=== PATIENT | female | born 1960 | race Caucasian/White ===

== ENCOUNTER 2017-06-10 16:24 | Emergency (ER) | payer OTHER ==
[2017-06-10 16:34] VITALS: BP 133/83; PULSE 91; TEMP 98.9; BMI 23.1
[2017-06-10] MEDS ORDERED: IBUPROFEN 600 MG TABLET (FP) PO ONE ×2 (17:40→17:49)
[2017-06-10 17:50] LABS: URINE APPEARANCE CLEAR; URINE BILIRUBIN NEGATIVE (NEGATIVE); URINE BLOOD NEGATIVE (NEGATIVE); URINE COLOR LTYELLOW; URINE GLUCOSE (UA) NEGATIVE (NEGATIVE); URINE KETONE NEGATIVE (NEGATIVE); URINE NITRITE NEGATIVE (NEGATIVE); URINE PROTEIN NEGATIVE (NEGATIVE); URINE UROBILINOGEN NEGATIVE mg/dL (0.2-1.0)
--- NOTE | 2017-06-10 17:50 | PDOC ---
History of Present Illness - General Chief Complaint: Sore Throat Stated Complaint: FEVER, PAIN Time Seen by Provider: 06/10/17 17:29 History Source: Patient Exam Limitations: No Limitations - History of Present Illness Initial Comments: 06/10/17 17:45 56 yr female with history of HTN, c/o sore throat and body aches and ear pain. Sore throat for 2 months. no fever no chills neg nvd or abd pain. Pt states 3 months ago she was on Zpack for throat pain. pT DENIES CHEST PAIN OR ABD PAIN. 06/10/17 18:55 Severity: mild Past History - Past Medical History Allergies/Adverse Reactions: Allergies Allergy/AdvReac Type Severity Reaction Status Date / Time aspirin Allergy Verified 06/10/17 16:34 Home Medications: Ambulatory Orders Acetazolamide [Diamox Sequels -] 500 mg PO BID 05/19/13 Diazepam [Valium] 5 mg PO HS 05/19/13 Hydrochlorothiazide [Hctz] 12.5 mg PO DAILY 05/19/13 Meclizine HCl [Antivert -] 25 mg PO TID PRN #15 tablet 05/19/13 Terbinafine HCl [Lamisil] 250 mg PO DAILY 05/19/13 Methocarbamol [Robaxin -] 500 mg PO BID #14 tablet 01/24/16 Omeprazole 20 mg PO DAILY #30 tablet. 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" - Surgical History Appendectomy: Yes - Psycho/Social/Smoking Cessation Hx Anxiety: No Suicidal Ideation: No Smoking Status: No Smoking History: Never smoked Number of Cigarettes Smoked Daily: 0 Hx Alcohol Use: No Drug/Substance Use Hx: No Substance Use Type: None *Physical Exam - Vital Signs Last Vital Signs Temp Pulse Resp BP Pulse Ox 98.9 F 91 H 20 133/83 96 06/10/17 16:32 06/10/17 16:32 06/10/17 16:32 06/10/17 16:32 06/10/17 16:32 - Physical Exam General Appearance: Yes: Nourished, Appropriately Dressed HEENT: positive: EOMI, LEIDY, Pharynx Normal, Other (bilateral cerumen impaction ) Respiratory/Chest: positive: Lungs Clear, Normal Breath Sounds Cardiovascular: positive: Regular Rhythm, Regular Rate Gastrointestinal/Abdominal: positive: Normal Bowel Sounds, Soft Musculoskeletal: positive: Normal Inspection Extremity: positive: Normal Capillary Refill, Normal Inspection, Normal Range of Motion Integumentary: positive: Normal Color, Dry, Warm Neurologic: positive: Fully Oriented, Alert, Normal Mood/Affect, Normal Response , Motor Strength 5/5 Medical Decision Making - Medical Decision Making 06/10/17 17:48 cc: sore throat for 2 months sometimes worse after eating headache body aches , denies abd pain or nvd will check rapid strep r/o UTI (pt c/o decreased urinary frequency) motrin for osuna , pt states she is NOT ALLERGIC to ibuprofen stable vitals non toxic well appearing in no acute distress 06/10/17 18:11 06/10/17 18:11 will try PPI as pt has had sore throat for 2-3 months worse after eating no evidence of infection at this time or post nasal drip will refer to ENT for follow up this week 06/10/17 18:13 06/10/17 18:55 urine is negative, strep is negative. will dc home with follow up with ENT as I have discussed with pt and her friend. *DC/Admit/Observation/Transfer Diagnosis at time of Disposition: Sore throat - Discharge Dispostion Disposition: HOME Condition at time of disposition: Good - Prescriptions Prescriptions: Omeprazole 20 mg PO DAILY #30 tablet.dr - Referrals Referrals: Lazaro Velasquez MD [Primary Care Provider] - Santy Betancur MD [Staff Physician] - - Patient Instructions Additional Instructions: follow with ENT for follow up this week call Monday drink pleanty of fluids to stay hydrated get pleanty of rest increase vitamin C and Zinc intake to boost immune system avoid any spicy foods, avoid alcohol, chocolate and red meat that can worsen sore throat take omeprazole once a day as directed continue to take tylenol 650mg every 4-6hrs for headache or body aches
[2017-06-10 18:02] LABS: URINE LEUK ESTERASE 1+ (NEGATIVE)
[2017-06-10 18:03] LABS: URINE MUCUS RARE; URINE RBC 1 /hpf (0-3); URINE WBC 26 /hpf (3-5)
== END 2017-06-10 18:33 | disposition home or self-care (01) ==
LOC: JERFT 16:24
DX: J02.9 Acute pharyngitis, unspecified (principal); H61.23 Impacted cerumen, bilateral; I10 Essential (primary) hypertension; Z87.442 Personal history of urinary calculi
CPT/HCPCS: 81003; 81015; 87070; 87430; 99281-25

== ENCOUNTER 2018-09-05 02:46 | Emergency (ER) | payer SELFPAY ==
[2018-09-05] MEDS ORDERED: SODIUM CHLORIDE 1,000 ML IV STA (03:52)
[2018-09-05] MEDS ORDERED: morphine CARPU-JECT 2 MG/1 ML DISP.SYRIN IVPUSH ONE (03:53)
--- NOTE | 2018-09-05 03:55 | PDOC ---
History of Present Illness - General Stated Complaint: ABDOMINAL PAIN Time Seen by Provider: 09/05/18 03:52 - History of Present Illness Initial Comments: 09/05/18 03:55 Ms. Lopez is a 58 yo female w/ pmh of HTN, HLD, and prior nephrolithiasis who presents for evaluation of lower left sided abdominal pain radiating to her back that woke her up from sleep earlier tonight. She reports it has waxed and waned in intensity and that it feels similar to her previous kidney stone. The patient denies chest pain, shortness of breath, headache and dizziness. Denies fever, chills, nausea, vomit, diarrhea and constipation. Denies dysuria, frequency, urgency and hematuria. Past History - Past Medical History Allergies/Adverse Reactions: Allergies Allergy/AdvReac Type Severity Reaction Status Date / Time aspirin Allergy Verified 09/05/18 03:58 Home Medications: Ambulatory Orders Diazepam [Valium] 5 mg PO HS 05/19/13 Hydrochlorothiazide [Hctz] 12.5 mg PO DAILY 05/19/13 Meclizine HCl [Antivert -] 25 mg PO TID PRN #15 tablet 05/19/13 Terbinafine HCl [Lamisil] 250 mg PO DAILY 05/19/13 acetaZOLAMIDE [Diamox Sequels -] 500 mg PO BID 05/19/13 Methocarbamol [Robaxin -] 500 mg PO BID #14 tablet 01/24/16 Omeprazole 20 mg PO DAILY #30 tablet. 06/10/17 HTN: Yes Kidney Stones: Yes - Surgical History Appendectomy: Yes - Suicide/Smoking/Psychosocial Hx Smoking Status: No Smoking History: Never smoked Number of Cigarettes Smoked Daily: 0 Hx Alcohol Use: No Drug/Substance Use Hx: No Substance Use Type: None Review of Systems - Review of Systems Comments:: 09/05/18 03:57 GENERAL/CONSTITUTIONAL: No fever or chills. No weakness. HEAD, EYES, EARS, NOSE AND THROAT: No change in vision. No ear pain or discharge. No sore throat. CARDIOVASCULAR: No chest pain or shortness of breath RESPIRATORY: No cough, wheezing, or hemoptysis. GASTROINTESTINAL: +Left sided abdominal pain; colicky in nature. No nausea, vomiting, diarrhea or constipation. GENITOURINARY: No dysuria, frequency, or change in urination. MUSCULOSKELETAL: No joint or muscle swelling or pain. No neck or back pain. SKIN: No rash NEUROLOGIC: No headache, vertigo, loss of consciousness, or change in strength/ sensation. ENDOCRINE: No increased thirst. No abnormal weight change HEMATOLOGIC/LYMPHATIC: No anemia, easy bleeding, or history of blood clots. ALLERGIC/IMMUNOLOGIC: No hives or skin allergy. *Physical Exam - Physical Exam Comments: 09/05/18 04:00 GENERAL: Awake, alert, and fully oriented, in no acute distress HEAD: No signs of trauma, normocephalic, atraumatic EYES: PERRLA, EOMI, sclera anicteric, conjunctiva clear ENT: Auricles normal inspection, hearing grossly normal, nares patent, oropharynx clear without exudates. Moist mucosa NECK: Normal ROM, supple, no lymphadenopathy, JVD, or masses LUNGS: No distress, speaks full sentences, clear to auscultation bilaterally HEART: Regular rate and rhythm, normal S1 and S2, no murmurs, rubs or gallops, peripheral pulses normal and equal bilaterally. ABDOMEN: +LLQ TTP. Soft, normoactive bowel sounds. No guarding, no rebound. No masses EXTREMITIES: Normal inspection, Normal range of motion, no edema. No clubbing or cyanosis. NEUROLOGICAL: Cranial nerves II through XII grossly intact. Normal speech, normal gait, no focal sensorimotor deficits SKIN: Warm, Dry, normal turgor, no rashes or lesions noted. ED Treatment Course - LABORATORY CBC & Chemistry Diagram: 09/05/18 05:12 09/05/18 05:12 Medical Decision Making - Medical Decision Making 09/05/18 04:00 Ms. Lopez is a 58 yo female w/ pmh as described who presents for evaluation of symptoms c/w nephrolithiasis. Will confirm with CT spiral and provide symptomatic relief with fluids / morphine / tylenol. Workup for infectious causes also started with labs. 09/05/18 06:48 Patient currently pending official radiology CT read. Stone thought to be visible on CT image. 09/05/18 07:12 Patient signed out to Dr. Shah for further evaluation. *DC/Admit/Observation/Transfer Diagnosis at time of Disposition: Nephrolithiasis - Discharge Dispostion Condition at time of disposition: Fair - Referrals Referrals: Lazaro Velasquez MD [Primary Care Provider] - - Patient Instructions - Post Discharge Activity
[2018-09-05] MEDS ORDERED: ACETAMINOPHEN 1000 MG/100 ML VIAL (NON FORMULARY) IVPB ONE (03:56)
[2018-09-05 03:58] VITALS: BMI 24.7
[2018-09-05] MEDS ORDERED: morphine CARPU-JECT 4 MG/1 ML DISP.SYRIN IVPUSH ONE (03:58)
--- NOTE | 2018-09-05 04:29 | PDOC ---
Attending Attestation - [facility] HPI: 09/05/18 04:43 The patient is a 58 year old female with a significant PMH of hypertension, and kidney stones who presents to the emergency department with left lower quadrant pain since earlier this morning. The patient reports that she was home sleeping when she felt an onset of lower left quadrant pain. The patient reports some associated nausea with her pain. She states that this pain feels similar to when she had her kidney stones. She states that it has been about 10 years. The patient denies any urinary symptoms. She denies any other symptoms. She denies any fever, chills, vomiting diarrhea constipation. She denies any chest pain, shortness of breath, headache or dizziness. The patient denies any other complaints. PCP: Dr. Velasquez - Physicial Exam PE: 09/05/18 04:43 GENERAL: Awake, alert, and fully oriented, in no acute distress HEAD: No signs of trauma EYES: PERRLA, EOMI, sclera anicteric, conjunctiva clear ENT: Auricles normal inspection, hearing grossly normal, nares patent,. Moist mucosa NECK: Normal ROM, supple, no JVD, or masses ABDOMEN: (+)left lower quadrant tenderness on palpation. Left CVA tenderness. Soft. No guarding, no rebound. No masses EXTREMITIES: Normal range of motion, no edema. No clubbing or cyanosis. No cords, erythema, or tenderness NEUROLOGICAL: Cranial nerves II through XII grossly intact. Normal speech. SKIN: Warm, Dry, normal turgor, no rashes or lesions noted. Documentation prepared by Anh Avalos, acting as certified medical coder for Sudhakar Vogel MD <Anh Avalos - Last Filed: 09/05/18 04:43> - Resident Resident Name: Can Woodson - ED Attending Attestation I have performed the following: I have examined & evaluated the patient, The case was reviewed & discussed with the resident, I agree w/resident's findings & plan, Exceptions are as noted - Medical Decision Making 09/05/18 04:25 A portion of this note was documented by scribe services under my direction. I have reviewed the details of the note, within reason, and agree with the documentation with the following case summary and management plan written by me. Patient treated in the ED. Nursing notes are reviewed and incorporated into the medical decision-making. Vital signs reviewed. Peripheral IV access obtained by the nurse, laboratory studies are drawn and sent, reviewed and interpreted by myself. Vital Signs Temp Pulse Resp BP Pulse Ox 97.9 F 73 18 154/91 97 09/05/18 02:50 09/05/18 02:50 09/05/18 02:50 09/05/18 02:50 09/05/18 02:50 58-year-old female history of hypertension, hyperlipidemia, renal colic presents with left flank pain since morning. The patient was well yesterday. Woke up with severe pain with her left lower quadrant left flank pain like her Percocet. Reports some nausea but denies vomiting. No fevers or chills. No dysuria or hematuria. I suspect patient likely has renal colic. We'll obtain labs, urinalysis and CAT scan and reassess. 09/05/18 06:39 CBC, BMP 09/05/18 05:12 09/05/18 05:12 CMP Sodium 136 mmol/L (136-145) 09/05/18 05:12 Potassium 4.1 mmol/L (3.5-5.1) 09/05/18 05:12 Chloride 98 mmol/L (98-107) 09/05/18 05:12 Carbon Dioxide 30 mmol/L (21-32) 09/05/18 05:12 Anion Gap 8 MMOL/L (8-16) 09/05/18 05:12 BUN 23 mg/dL (7-18) H 09/05/18 05:12 Creatinine 0.7 mg/dL (0.55-1.3) 09/05/18 05:12 Creat Clearance w eGFR > 60 (>60) 09/05/18 05:12 Random Glucose 116 mg/dL (74-106) H 09/05/18 05:12 Calcium 8.8 mg/dL (8.5-10.1) 09/05/18 05:12 Total Bilirubin 0.2 mg/dL (0.2-1) 09/05/18 05:12 AST 27 U/L (15-37) 09/05/18 05:12 ALT 33 U/L (13-61) 09/05/18 05:12 Alkaline Phosphatase 72 U/L (45-117) 09/05/18 05:12 Total Protein 7.2 g/dl (6.4-8.2) 09/05/18 05:12 Albumin 3.6 g/dl (3.4-5.0) 09/05/18 05:12 Urine Test Results Urine Color Colorless 09/05/18 05:12 Urine Appearance Clear 09/05/18 05:12 Urine pH 7.0 (5.0-8.0) 09/05/18 05:12 Ur Specific [place] 1.011 (1.010-1.035) 09/05/18 05:12 Urine Protein Negative (NEGATIVE) 09/05/18 05:12 Urine Glucose (UA) Negative (NEGATIVE) 09/05/18 05:12 Urine Ketones Negative (NEGATIVE) 09/05/18 05:12 Urine Blood 1+ (NEGATIVE) H 09/05/18 05:12 Urine Nitrite Negative (NEGATIVE) 09/05/18 05:12 Urine Bilirubin Negative (<2.0 mg/dL) 09/05/18 05:12 Ur Leukocyte Esterase Negative (NEGATIVE) 09/05/18 05:12 Ur Epithelial Cells Rare /HPF (FEW) 09/05/18 05:12 Urine Bacteria Rare /hpf (NONE SEEN) 09/05/18 05:12 Urine Mucus Rare 09/05/18 05:12 CT pending. 09/05/18 06:53 Pt signed out to oncoming ED attending Dr. Horowitz for further management and disposition. <Sudhakar Vogel - Last Filed: 09/05/18 06:53>
[2018-09-05] MEDS ORDERED: ACETAMINOPHEN INJECTION 100 ML IVPB ONE (05:08)
[2018-09-05] MEDS ORDERED: morphine SULFATE 4 MG/ML VIAL ONE (05:08)
[2018-09-05 05:26] LABS: BASO % 0.1 % (0-2.0); EOS % 0.3 % (0-4.5); HEMATOCRIT 43.2 % (32.4-45.2); HEMOGLOBIN 14.3 GM/dL (10.7-15.3); LYMPH % 9.2 % (8-40); MCH 30.8 pg (25.7-33.7); MEAN CELL VOLUME 93.2 fl (80-96); MEAN PLT VOLUME 7.9 fl (7.5-11.1); MONO % 6.6 % (3.8-10.2); NEUT % 83.8 % (42.8-82.8); PLATELET COUNT 253 K/MM3 (134-434); RBC 4.63 M/mm3 (3.60-5.2); RDW 12.3 % (11.6-15.6); WHITE BLOOD COUNT 13.2 K/mm3 (4.0-10.0)
[2018-09-05 05:27] LABS: URINE APPEARANCE CLEAR; URINE BILIRUBIN NEGATIVE (<2.0 mg/dL); URINE COLOR COLORLESS; URINE GLUCOSE (UA) NEGATIVE (NEGATIVE); URINE KETONE NEGATIVE (NEGATIVE); URINE LEUK ESTERASE NEGATIVE (NEGATIVE); URINE NITRITE NEGATIVE (NEGATIVE); URINE PROTEIN NEGATIVE (NEGATIVE); URINE UROBILINOGEN NEGATIVE mg/dL (0.2-1.0)
[2018-09-05 05:37] LABS: EPI CELLS RARE /HPF (FEW); URINE BACTERIA RARE /hpf (NONE SEEN); URINE MUCUS RARE
[2018-09-05 05:47] LABS: ALBUMIN 3.6 g/dl (3.4-5.0); ALK PHOS 72 U/L (45-117); ANION GAP 8 MMOL/L (8-16); BILIRUBIN,TOTAL 0.2 mg/dL (0.2-1); BLOOD UREA NITROGEN 23 mg/dL (7-18); CALCIUM 8.8 mg/dL (8.5-10.1); CHLORIDE 98 mmol/L (98-107); CO2 30 mmol/L (21-32); CREATININE 0.7 mg/dL (0.55-1.3); GLUCOSE,RANDOM 116 mg/dL (74-106); POTASSIUM 4.1 mmol/L (3.5-5.1); SGOT/AST 27 U/L (15-37); SGPT/ALT 33 U/L (13-61); SODIUM 136 mmol/L (136-145); TOT PROT 7.2 g/dl (6.4-8.2)
--- NOTE | 2018-09-05 07:19 | PDOC ---
*Physical Exam - Vital Signs Last Vital Signs Temp Pulse Resp BP Pulse Ox 97.9 F 86 18 130/67 97 09/05/18 02:50 09/05/18 06:32 09/05/18 06:32 09/05/18 06:32 09/05/18 06:32 ED Treatment Course - LABORATORY CBC & Chemistry Diagram: 09/05/18 05:12 09/05/18 05:12 - ADDITIONAL ORDERS Additional order review: Laboratory Results 09/05/18 09/05/18 05:12 05:12 Sodium 136 Potassium 4.1 Chloride 98 Carbon Dioxide 30 Anion Gap 8 BUN 23 H Creatinine 0.7 Creat Clearance w eGFR > 60 Random Glucose 116 H Calcium 8.8 Total Bilirubin 0.2 AST 27 ALT 33 Alkaline Phosphatase 72 Total Protein 7.2 Albumin 3.6 Urine Color Colorless Urine Appearance Clear Urine pH 7.0 Ur Specific [place] 1.011 Urine Protein Negative Urine Glucose (UA) Negative Urine Ketones Negative Urine Blood 1+ H Urine Nitrite Negative Urine Bilirubin Negative Urine Urobilinogen Negative Ur Leukocyte Esterase Negative Urine WBC (Auto) 2 Urine RBC (Auto) 3 Ur Epithelial Cells Rare Urine Bacteria Rare Urine Mucus Rare 09/05/18 05:12 RBC 4.63 MCV 93.2 MCHC 33.0 RDW 12.3 MPV 7.9 Neutrophils % 83.8 H Lymphocytes % 9.2 D Monocytes % 6.6 Eosinophils % 0.3 Basophils % 0.1 - Medications Given in the ED: ED Medications Discontinued Medications Generic Name Dose Route Start Last Admin Trade Name Fabricio PRN Reason Stop Dose Admin Acetaminophen 1,000 mg 09/05/18 03:56 09/05/18 05:25 Ofirmev Injection - IVPB 09/05/18 03:57 1,000 mg ONCE ONE Administration Sodium Chloride 1,000 mls @ 1,000 mls/hr 09/05/18 03:52 09/05/18 05:25 Normal Saline - IV 09/05/18 04:51 1,000 mls/hr ASDIR STA Administration Morphine Sulfate 2 mg 09/05/18 03:53 09/05/18 06:47 Morphine Injection - IVPUSH 09/05/18 03:54 Not Given ONCE ONE Morphine Sulfate 4 mg 09/05/18 03:58 09/05/18 05:25 Morphine Injection - IVPUSH 09/05/18 03:59 4 mg ONCE ONE Administration Medical Decision Making - Medical Decision Making 09/05/18 07:18 58 year old female with PMH multiple kidney stones, lithotripsy presented to ED for left sided flank pain. Initial Vital Signs Temp Pulse Resp BP Pulse Ox 97.9 F 73 18 154/91 97 09/05/18 02:50 09/05/18 02:50 09/05/18 02:50 09/05/18 02:50 09/05/18 02:50 Afebrile. No tachycardia. No tachypnea. Mild hypertension. No hypoxia on room air. CBC WBC 13.2 K/mm3 (4.0-10.0) H 09/05/18 05:12 RBC 4.63 M/mm3 (3.60-5.2) 09/05/18 05:12 Hgb 14.3 GM/dL (10.7-15.3) 09/05/18 05:12 Hct 43.2 % (32.4-45.2) 09/05/18 05:12 MCV 93.2 fl (80-96) 09/05/18 05:12 MCH 30.8 pg (25.7-33.7) 09/05/18 05:12 MCHC 33.0 g/dl (32.0-36.0) 09/05/18 05:12 RDW 12.3 % (11.6-15.6) 09/05/18 05:12 Plt Count 253 K/MM3 (134-434) 09/05/18 05:12 MPV 7.9 fl (7.5-11.1) 09/05/18 05:12 Absolute Neuts (auto) 11.1 K/mm3 (1.5-8.0) H 09/05/18 05:12 Neutrophils % 83.8 % (42.8-82.8) H 09/05/18 05:12 Lymphocytes % 9.2 % (8-40) D 09/05/18 05:12 Monocytes % 6.6 % (3.8-10.2) 09/05/18 05:12 Eosinophils % 0.3 % (0-4.5) 09/05/18 05:12 Basophils % 0.1 % (0-2.0) 09/05/18 05:12 Nucleated RBC % 0 % (0-0) 09/05/18 05:12 Leukocytosis No anemia. CMP Sodium 136 mmol/L (136-145) 09/05/18 05:12 Potassium 4.1 mmol/L (3.5-5.1) 09/05/18 05:12 Chloride 98 mmol/L (98-107) 09/05/18 05:12 Carbon Dioxide 30 mmol/L (21-32) 09/05/18 05:12 Anion Gap 8 MMOL/L (8-16) 09/05/18 05:12 BUN 23 mg/dL (7-18) H 09/05/18 05:12 Creatinine 0.7 mg/dL (0.55-1.3) 09/05/18 05:12 Creat Clearance w eGFR > 60 (>60) 09/05/18 05:12 Random Glucose 116 mg/dL (74-106) H 09/05/18 05:12 Calcium 8.8 mg/dL (8.5-10.1) 09/05/18 05:12 Total Bilirubin 0.2 mg/dL (0.2-1) 09/05/18 05:12 AST 27 U/L (15-37) 09/05/18 05:12 ALT 33 U/L (13-61) 09/05/18 05:12 Alkaline Phosphatase 72 U/L (45-117) 09/05/18 05:12 Total Protein 7.2 g/dl (6.4-8.2) 09/05/18 05:12 Albumin 3.6 g/dl (3.4-5.0) 09/05/18 05:12 No electrolyte abnormalities. No RANDOLPH. Pt dehydrated. - Pt received 1L IV hydration Urine Test Results Urine Color Colorless 09/05/18 05:12 Urine Appearance Clear 09/05/18 05:12 Urine pH 7.0 (5.0-8.0) 09/05/18 05:12 Ur Specific [place] 1.011 (1.010-1.035) 09/05/18 05:12 Urine Protein Negative (NEGATIVE) 09/05/18 05:12 Urine Glucose (UA) Negative (NEGATIVE) 09/05/18 05:12 Urine Ketones Negative (NEGATIVE) 09/05/18 05:12 Urine Blood 1+ (NEGATIVE) H 09/05/18 05:12 Urine Nitrite Negative (NEGATIVE) 09/05/18 05:12 Urine Bilirubin Negative (<2.0 mg/dL) 09/05/18 05:12 Ur Leukocyte Esterase Negative (NEGATIVE) 09/05/18 05:12 Ur Epithelial Cells Rare /HPF (FEW) 09/05/18 05:12 Urine Bacteria Rare /hpf (NONE SEEN) 09/05/18 05:12 Urine Mucus Rare 09/05/18 05:12 No UTI. 1+ blood. Vital Signs Temperature 97.9 F 09/05/18 02:50 Pulse Rate 86 09/05/18 06:32 Respiratory Rate 18 09/05/18 06:32 Blood Pressure 130/67 09/05/18 06:32 O2 Sat by Pulse Oximetry (%) 97 09/05/18 06:32 Hypertension improved with pain control. - Pt received Tylenol and morphine. Spiral CT report: 6 mm stone at left ureterovesicular junction with moderate ydronephrosis and ureteral distension. Bilateral calyceal stones. - Flomax ordered - Pt reported no urologist as she has not had a stone in a while - Urology personnel training officer paged. Pt reports improvement of pain, upon arrival was 07/25, now 410. 09/05/18 07:[address] Delgado about the case, he stated that if she is well pain controlled, and no sign of UTI, that she can be discharged and managed outpatient with flomax. - Flomax prescription sent to pharmacy Pt to be discharged. *DC/Admit/Observation/Transfer Diagnosis at time of Disposition: Nephrolithiasis - Discharge Dispostion Disposition: HOME Condition at time of disposition: Fair Decision to Admit order: No - Prescriptions Prescriptions: Oxycodone HCl/Acetaminophen [Percocet 5-325 mg Tablet -] 1 tab PO TID PRN #12 tablet MDD 3 PRN Reason: Severe Pain Tamsulosin HCl [Flomax] 0.4 mg PO DAILY #6 cap.er.24h - Referrals Referrals: Lazaro Velasquez MD [Primary Care Provider] - Ramirez Beaulieu MD [Staff Physician] - Chava Ellison MD [Staff Physician] - Corey Valle MD., MD [Staff Physician] - Al Benavides MD [Staff Physician] - - Patient Instructions Printed Discharge Instructions: DI for Kidney Stones Additional Instructions: You were seen today for abdominal pain. Your Catscan showed you have a 6mm kidney stone. I have included a copy of the report in your discharge paperwork, bring this report to your primary care doctor and urologist. I have provided you with a referral for a few urologist, call their office today and ask for the soonest appointment, tell them you were referred from the Emergency Department. Follow up with your primary care doctor in 1-2 days, call their office today and ask for the soonest appointment. Your care is not complete until you follow up. I have sent a prescription for pain medication and flomax to your pharmacy, take as advised on the labels. Return to the Emergency Department for increasing pain, vomiting, fever, chills, burning when you pee, blood in urine, lightheadedness like you may pass out, chest pain, shortness of breath or any other new, worsening or concerning symptoms. Te vieron hoy por dolor abdominal. Toro Catscan demostr que tiene un clculo renal de 6 mm. He incluido [place] copia del informe en neri documentos de cata, lleve aisha informe a toro mdico de atencin primaria y urlogo. Le he proporcionado [place] referencia para algunos urlogos, llame a toro oficina humza y solicite la mark ms rpida, dgales que fue referido por el Departamento de Emergencias. Roosevelt un seguimiento con toro mdico de atencin primaria en 1 o 2 anaya, llame a toro consultorio humza y solicite la mark ms rpida. Toro atencin no est completa hasta que roosevelt un seguimiento. He enviado [place] receta para medicamentos para el dolor y flomax a toro farmacia, tome las indicaciones en las etiquetas. Regrese a la laura de emergencias para aumentar el dolor, vmitos, fiebre, escalofros, ardor al orinar, sher en la orina, mareo ceci si pudiera desmayarse, dolor en el pecho, dificultad para respirar o cualquier otro sntoma nuevo, que empeore o relacionado con los sntomas. - Post Discharge Activity Forms/Work/School Notes: Back to Work
[2018-09-05] MEDS ORDERED: TAMSULOSIN HCL 0.4 MG CAP PO ONE (07:27)
--- NOTE | 2018-09-05 07:38 | PDOC ---
*Physical Exam - Vital Signs Last Vital Signs Temp Pulse Resp BP Pulse Ox 97.9 F 86 18 130/67 97 09/05/18 02:50 09/05/18 06:32 09/05/18 06:32 09/05/18 06:32 09/05/18 06:32 ED Treatment Course - LABORATORY CBC & Chemistry Diagram: 09/05/18 05:12 09/05/18 05:12 - ADDITIONAL ORDERS Additional order review: Laboratory Results 09/05/18 09/05/18 05:12 05:12 Sodium 136 Potassium 4.1 Chloride 98 Carbon Dioxide 30 Anion Gap 8 BUN 23 H Creatinine 0.7 Creat Clearance w eGFR > 60 Random Glucose 116 H Calcium 8.8 Total Bilirubin 0.2 AST 27 ALT 33 Alkaline Phosphatase 72 Total Protein 7.2 Albumin 3.6 Urine Color Colorless Urine Appearance Clear Urine pH 7.0 Ur Specific [place] 1.011 Urine Protein Negative Urine Glucose (UA) Negative Urine Ketones Negative Urine Blood 1+ H Urine Nitrite Negative Urine Bilirubin Negative Urine Urobilinogen Negative Ur Leukocyte Esterase Negative Urine WBC (Auto) 2 Urine RBC (Auto) 3 Ur Epithelial Cells Rare Urine Bacteria Rare Urine Mucus Rare 09/05/18 05:12 RBC 4.63 MCV 93.2 MCHC 33.0 RDW 12.3 MPV 7.9 Neutrophils % 83.8 H Lymphocytes % 9.2 D Monocytes % 6.6 Eosinophils % 0.3 Basophils % 0.1 - Medications Given in the ED: ED Medications Discontinued Medications Generic Name Dose Route Start Last Admin Trade Name Fabricio PRN Reason Stop Dose Admin Acetaminophen 1,000 mg 09/05/18 03:56 09/05/18 05:25 Ofirmev Injection - IVPB 09/05/18 03:57 1,000 mg ONCE ONE Administration Sodium Chloride 1,000 mls @ 1,000 mls/hr 09/05/18 03:52 09/05/18 05:25 Normal Saline - IV 09/05/18 04:51 1,000 mls/hr ASDIR STA Administration Morphine Sulfate 2 mg 09/05/18 03:53 09/05/18 06:47 Morphine Injection - IVPUSH 09/05/18 03:54 Not Given ONCE ONE Morphine Sulfate 4 mg 09/05/18 03:58 09/05/18 05:25 Morphine Injection - IVPUSH 09/05/18 03:59 4 mg ONCE ONE Administration Medical Decision Making - Medical Decision Making 09/05/18 07:34 This patient winters a history of renal colic Pt signed out pending CT Ct shows 6mm stone with hydronephrosis Call placed to Dr Valle He recommends discharge if pain free Pt is pain free Will refer to his office NSIAD/Percocet/Flomax *DC/Admit/Observation/Transfer Diagnosis at time of Disposition: Nephrolithiasis - Discharge Dispostion Disposition: HOME Condition at time of disposition: Stable Decision to Admit order: No - Referrals Referrals: Lazaro Velasquez MD [Primary Care Provider] - - Patient Instructions - Post Discharge Activity
[2018-09-05] MEDS ORDERED: TAMSULOSIN HCL 0.4 MG CAP ONE (07:56)
[2018-09-05 08:03] VITALS: BP 112/81; PULSE 87; TEMP 98.2
== END 2018-09-05 08:03 | disposition home or self-care (01) ==
LOC: JER 02:46
PROC: 3E033NZ Introduction of Analgesics, Hypnotics, Sedatives into Peripheral Vein, Percutaneous Approach (ICD-10-PCS; principal; 2018-09-05)
PROC: 3E033NZ Introduction of Analgesics, Hypnotics, Sedatives into Peripheral Vein, Percutaneous Approach (ICD-10-PCS; 2018-09-05)
PROC: 3E0337Z Introduction of Electrolytic and Water Balance Substance into Peripheral Vein, Percutaneous Approach (ICD-10-PCS; 2018-09-05)
DX: N13.2 Hydronephrosis with renal and ureteral calculous obstruction (principal); Z87.442 Personal history of urinary calculi; E86.0 Dehydration; I10 Essential (primary) hypertension; E78.5 Hyperlipidemia, unspecified
CPT/HCPCS: 36415; 74176; 80053; 81003; 81015; 85025; 87086; 99284-25; J0131; J7030

== ENCOUNTER 2019-08-02 06:51 | Emergency (ER) | payer OTHER ==
[2019-08-02 07:01] VITALS: BMI 24.4
[2019-08-02] MEDS ORDERED: SODIUM CHLORIDE 1,000 ML IV STA (07:49)
[2019-08-02] MEDS ORDERED: ACETAMINOPHEN 1000 MG/100 ML VIAL (NON FORMULARY) IVPB ONE (07:49)
[2019-08-02] MEDS ORDERED: ACETAMINOPHEN INJECTION 100 ML IVPB ONE (08:14)
[2019-08-02 08:15] LABS: BASO % 0.4 % (0-2.0); EOS % 0.4 % (0-4.5); HEMATOCRIT 44.6 % (32.4-45.2); HEMOGLOBIN 15.1 GM/dL (10.7-15.3); LYMPH % 15.6 % (8-40); MCH 31.5 pg (25.7-33.7); MCHC 33.8 g/dl (32.0-36.0); MEAN CELL VOLUME 93.3 fl (80-96); MEAN PLT VOLUME 7.5 fl (7.5-11.1); MONO % 10.4 % (3.8-10.2); NEUT % 73.2 % (42.8-82.8); PLATELET COUNT 260 K/MM3 (134-434); RBC 4.79 M/mm3 (3.60-5.2); RDW 13.3 % (11.6-15.6); WHITE BLOOD COUNT 9.4 K/mm3 (4.0-10.0)
[2019-08-02] MEDS ORDERED: ONDANSETRON 4 MG TABLET PO ONE (08:43)
--- NOTE | 2019-08-02 08:43 | PDOC ---
Attending Attestation - Resident Resident Name: Matt Babin - ED Attending Attestation I have performed the following: I have examined & evaluated the patient, The case was reviewed & discussed with the resident, I agree w/resident's findings & plan, Exceptions are as noted - HPI HPI: 08/02/19 08:36 59 F with h/o HTN presents to ED with fevers, nausea, vomiting, and diarrhea x 3 days. Pt endorses abdominal cramps. Denies CP/SOB. Denies flank pain. No known sick contacts. - Physicial Exam PE: 08/02/19 08:44 "GENERAL: Awake, alert, and fully oriented, in no acute distress. HEAD: No signs of trauma EYES: PERRLA, EOMI, sclera anicteric, conjunctiva clear ENT: Auricles normal inspection, hearing grossly normal, nares patent, oropharynx clear without exudates. Moist mucosa NECK: Nontender, no stepoffs, Normal ROM, supple, no lymphadenopathy, JVD, or masses LUNGS: Breath sounds equal, clear to auscultation bilaterally. No wheezes, and no crackles HEART: Regular rate and rhythm, normal S1 and S2, no murmurs, rubs or gallops ABDOMEN: Soft, nontender, normoactive bowel sounds. No guarding, no rebound. No masses EXTREMITIES: Normal range of motion, no edema. No clubbing or cyanosis. No cords, erythema, or tenderness NEUROLOGICAL: Cranial nerves II through XII intact. 5/5 strength and sensation in all extremities, Normal speech, normal gait, normal cerebellar function SKIN: Warm, Dry, normal turgor, no rashes or lesions noted. - Medical Decision Making 08/02/19 08:44 59 F with N/V/D and fevers at home. Vitals normal here. Abdomen benign. Suspect gastroenteritis. - Labs - IVF, GI cocktail 08/02/19 09:15 Labs wnl UA with + blood. Discussed with pt and advised her to f/u with PMD for further evaluation of this. Repeat abdominal exam continues to be nontender Pt is well appearing, with normal vitals. Clinically stable for DC at this time. I discussed the physical exam findings, ancillary test results and final diagnoses with the patient. I answered all of the patient's questions. The patient was satisfied with the care received and felt comfortable with the discharge plan and treatment plan. The patient agrees to follow up with the primary care physician within 24-72 hours.
[2019-08-02] MEDS ORDERED: FAMOTIDINE 20 MG/50 ML IVPB 20 MG/50 ML MG IVPB ONE ×2 (08:45→09:35)
[2019-08-02 08:48] LABS: ALBUMIN 3.2 g/dl (3.4-5.0); BILIRUBIN,TOTAL 0.4 mg/dL (0.2-1); BLOOD UREA NITROGEN 7.6 mg/dL (7-18); CALCIUM 8.7 mg/dL (8.5-10.1); CREATININE 0.8 mg/dL (0.55-1.3); POTASSIUM 4.9 mmol/L (3.5-5.1); TOT PROT 7.1 g/dl (6.4-8.2)
[2019-08-02 08:52] LABS: EPI CELLS 1.7 /HPF (0-5/HPF); HYALINE CASTS 0 /lpf (0-8); URINE APPEARANCE CLEAR; URINE BACTERIA 5.3 /hpf (NEGATIVE); URINE BILIRUBIN NEGATIVE (NEGATIVE); URINE COLOR YELLOW; URINE GLUCOSE (UA) NEGATIVE (NEGATIVE); URINE KETONE NEGATIVE (NEGATIVE); URINE LEUK ESTERASE NEGATIVE (NEGATIVE); URINE NITRITE NEGATIVE (NEGATIVE); URINE PROTEIN NEGATIVE (NEGATIVE); URINE RBC 10 /hpf (0-4); URINE UROBILINOGEN 0.2 mg/dL (0.2-1.0); URINE WBC 1 /hpf (0-5)
--- NOTE | 2019-08-02 09:11 | PDOC ---
History of Present Illness - General Chief Complaint: Pain Stated Complaint: FEVER,PAIN,DIARRHEA Time Seen by Provider: 08/02/19 07:25 History Source: Patient Exam Limitations: No Limitations - History of Present Illness Initial Comments: 08/02/19 09:12 59 yo female pmh of HTN presents to the ED for 3 days of HAQ, F/C, sore throat, abdominal pain and diarrhea. [place], [place] symptoms [place]. Denies sick contacts or eating new/uncooked foods. Pt states tylenol improves symptoms. Pt had appointment with primary doctor today at 2 30 pm. Denies CP, SOB, back pain, changes in urinary habits, no blood in stool, no cough or ear pain Past History - Past Medical History Allergies/Adverse Reactions: Allergies Allergy/AdvReac Type Severity Reaction Status Date / Time aspirin Allergy Verified 08/02/19 06:58 Home Medications: Ambulatory Orders Diazepam [Valium] 5 mg PO HS 05/19/13 Hydrochlorothiazide [Hctz] 12.5 mg PO DAILY 05/19/13 Meclizine HCl [Antivert -] 25 mg PO TID PRN #15 tablet 05/19/13 Terbinafine HCl [Lamisil] 250 mg PO DAILY 05/19/13 acetaZOLAMIDE [Diamox Sequels -] 500 mg PO BID 05/19/13 Methocarbamol [Robaxin -] 500 mg PO BID #14 tablet 01/24/16 Omeprazole 20 mg PO DAILY #30 tablet. 06/10/17 Oxycodone HCl/Acetaminophen [Percocet 5-325 mg Tablet -] 1 tab PO TID PRN #12 tablet MDD 3 09/05/18 Tamsulosin HCl [Flomax] 0.4 mg PO DAILY #6 cap.er.24h 09/05/18 COPD: No HTN: Yes Kidney Stones: Yes - Surgical History Appendectomy: Yes - Immunization History Immunization Up to Date: Yes - Psycho Social/Smoking Cessation Hx Smoking Status: No Smoking History: Never smoked Have you smoked in the past 12 months: No Number of Cigarettes Smoked Daily: 0 Information on smoking cessation initiated: No Hx Alcohol Use: No Drug/Substance Use Hx: No Substance Use Type: None Review of Systems - Review of Systems Constitutional: Yes: Chills, Fever Respiratory: No: Cough, Shortness of Breath, Stridor, Wheezing Cardiac (ROS): No: Chest Pain, Edema ABD/GI: Yes: Diarrhea, Nausea. No: Constipated, Vomiting Integumentary: No: Change in Color Neurological: Yes: Headache. No: Numbness, Paresthesia *Physical Exam - Vital Signs Last Vital Signs Temp Pulse Resp BP Pulse Ox 99.0 F 89 20 142/83 96 08/02/19 06:58 08/02/19 06:58 08/02/19 06:58 08/02/19 06:58 08/02/19 06:58 - Physical Exam General Appearance: Yes: Nourished, Appropriately Dressed. No: Apparent Distress HEENT: positive: EOMI Neck: positive: Supple. negative: Carotid bruit Respiratory/Chest: positive: Lungs Clear, Normal Breath Sounds. negative: Accessory Muscle Use, Crackles, Rales, Rhonchi, Stridor, Wheezing Cardiovascular: positive: Regular Rhythm, Regular Rate, S1, S2. negative: Edema , JVD, Murmur Vascular Pulses: Dorsalis-Pedis (R): 4+, Doralis-Pedis (L): 4+ Gastrointestinal/Abdominal: positive: Flat, Soft Musculoskeletal: negative: CVA Tenderness Extremity: positive: Normal Capillary Refill, Normal Inspection Integumentary: positive: Normal Color, Dry, Warm Neurologic: positive: Fully Oriented, Alert ED Treatment Course - LABORATORY CBC & Chemistry Diagram: 08/02/19 08:00 08/02/19 08:00 - ADDITIONAL ORDERS Additional order review: Laboratory Results 08/02/19 08/02/19 08/02/19 08:30 08:00 08:00 Sodium 136 Potassium 4.9 Chloride 102 Carbon Dioxide 27 Anion Gap 6 L BUN 7.6 Creatinine 0.8 Est GFR (CKD-EPI)AfAm 92.87 Est GFR (CKD-EPI)NonAf 80.13 Random Glucose 104 Calcium 8.7 Total Bilirubin 0.4 AST 44 H ALT 34 Alkaline Phosphatase 73 Total Protein 7.1 Albumin 3.2 L Lipase 247 Urine Color Yellow Urine Appearance Clear Urine pH 6.0 Ur Specific [place] 1.007 L Urine Protein Negative Urine Glucose (UA) Negative Urine Ketones Negative Urine Blood 2+ H Urine Nitrite Negative Urine Bilirubin Negative Urine Urobilinogen 0.2 Ur Leukocyte Esterase Negative Urine WBC (Auto) 1 Urine RBC (Auto) 10 Urine Casts (Auto) 0 U Epithel Cells (Auto) 1.7 Urine Bacteria (Auto) 5.3 08/02/19 08:00 RBC 4.79 MCV 93.3 MCHC 33.8 RDW 13.3 MPV 7.5 Neutrophils % 73.2 Lymphocytes % 15.6 D Monocytes % 10.4 H Eosinophils % 0.4 Basophils % 0.4 D - Medications Given in the ED: ED Medications Discontinued Medications Generic Name Dose Route Start Last Admin Trade Name Fabricio PRN Reason Stop Dose Admin Acetaminophen 1,000 mg 08/02/19 07:49 08/02/19 08:20 Ofirmev Injection - IVPB 08/02/19 07:50 1,000 mg ONCE ONE Administration Sodium Chloride 1,000 mls @ 1,000 mls/hr 08/02/19 07:49 08/02/19 08:20 Normal Saline - IV 08/02/19 08:48 1,000 mls/hr ASDIR STA Administration Medical Decision Making - Medical Decision Making 08/02/19 09:41 59 yo female pmh of HTN presents to the ED for 3 days of HAQ, F/C, sore throat, abdominal pain and diarrhea. [place], denies symptoms [place]. Denies sick contacts or eating new/uncooked foods. Pt states tylenol improves symptoms. Pt had appointment with primary doctor today at 2 30 pm. Denies CP, SOB, back pain, changes in urinary habits, no blood in stool, no cough or ear pain vitals wnl strep and influ neg Labs WNL, no WBC, no electrolyte ab, no signs of dehydration UA neg for infection. Blood in urine however, no pain on urination, neg CVA tenderness pt has appointment with Primary Doctor at 2 30 pm today, recommend f/u today, continue tylenol and use imodium Discharge - Discharge Information Problems reviewed: Yes Clinical Impression/Diagnosis: Gastroenteritis, URI (upper respiratory infection) Condition: Stable Disposition: HOME - Admission No - Follow up/Referral - Patient Discharge Instructions Patient Printed Discharge Instructions: DI for Viral Upper Respiratory Infection -- Adult, DI for Abdominal Pain-Adult Additional Instructions: Please see your Primary Doctor within the next 48 hours. Take over the counter tylenol every 4-6 hours for headaches and fevers. Use Imodium over the counter for diarrhea. Return to the ER for new or concerning symptoms including but not limited to: inability to eat or drink, severe abdominal pain or lethargy. Thank you - Post Discharge Activity
[2019-08-02] MEDS ORDERED: ONDANSETRON *ODT* 4 MG TABLET ONE (09:35)
[2019-08-02] MEDS ORDERED: LOPERAMIDE HCL 2 MG CAPSULE PO ONE (09:37)
[2019-08-02 10:00] VITALS: BP 134/82; PULSE 73; TEMP 98.1
== END 2019-08-02 10:00 | disposition home or self-care (01) ==
LOC: JER 06:51
PROC: 3E033GC Introduction of Other Therapeutic Substance into Peripheral Vein, Percutaneous Approach (ICD-10-PCS; principal; 2019-08-02)
PROC: 3E0337Z Introduction of Electrolytic and Water Balance Substance into Peripheral Vein, Percutaneous Approach (ICD-10-PCS; 2019-08-02)
PROC: 3E033NZ Introduction of Analgesics, Hypnotics, Sedatives into Peripheral Vein, Percutaneous Approach (ICD-10-PCS; 2019-08-02)
DX: K52.9 Noninfective gastroenteritis and colitis, unspecified (principal); J06.9 Acute upper respiratory infection, unspecified; Z88.8 Allergy status to other drugs, medicaments and biological substances; I10 Essential (primary) hypertension
CPT/HCPCS: 36415; 80053; 81003; 83690; 85025; 87070; 87804; 87880; 96361; 96365; 96375; 99283-25; J0131; J7030

== ENCOUNTER 2019-12-18 19:37 | Emergency (ER) | payer OTHER ==
[2019-12-18 19:42] VITALS: BP 144/81; PULSE 98; TEMP 99.3; BMI 24.4
--- NOTE | 2019-12-18 19:45 | PDOC ---
Rapid Medical Evaluation Time Seen by Provider: 12/18/19 19:41 Medical Evaluation: Allergies Allergy/AdvReac Type Severity Reaction Status Date / Time aspirin Allergy Verified 08/02/19 06:58 12/18/19 19:42 Pt c/o: myalgia, fever, cough since yesterday, took tylenol 1/2 hr ago Pt on brief exam: vss, + nasal congestion Pt ordered for: influenza Pt to proceed to the ED Discharge Disposition - Diagnosis Flu-like symptoms - Referrals - Patient Instructions - Post Discharge Activity
--- NOTE | 2019-12-18 20:03 | PDOC ---
History of Present Illness - General Chief Complaint: Cold Symptoms Stated Complaint: FLU SYMPTOMS Time Seen by Provider: 12/18/19 19:41 - History of Present Illness Initial Comments: 12/18/19 20:02 59-year-old female with positive flu contact at home presents for symptoms x1 day Past History - Past Medical History Allergies/Adverse Reactions: Allergies Allergy/AdvReac Type Severity Reaction Status Date / Time aspirin Allergy Verified 12/18/19 19:42 Home Medications: Ambulatory Orders Diazepam [Valium] 5 mg PO HS 05/19/13 Hydrochlorothiazide [Hctz] 12.5 mg PO DAILY 05/19/13 Meclizine HCl [Antivert -] 25 mg PO TID PRN #15 tablet 05/19/13 Terbinafine HCl [Lamisil] 250 mg PO DAILY 05/19/13 acetaZOLAMIDE [Diamox Sequels -] 500 mg PO BID 05/19/13 Methocarbamol [Robaxin -] 500 mg PO BID #14 tablet 01/24/16 Omeprazole 20 mg PO DAILY #30 tablet. 06/10/17 Oxycodone HCl/Acetaminophen [Percocet 5-325 mg Tablet -] 1 tab PO TID PRN #12 tablet MDD 3 09/05/18 Tamsulosin HCl [Flomax] 0.4 mg PO DAILY #6 cap.er.24h 09/05/18 Oseltamivir Phosphate [Tamiflu] 75 mg PO BID #10 capsule 12/18/19 COPD: No HTN: Yes Kidney Stones: Yes - Surgical History Appendectomy: Yes - Immunization History Immunization Up to Date: Yes - Psycho Social/Smoking Cessation Hx Smoking Status: No Smoking History: Never smoked Have you smoked in the past 12 months: No Number of Cigarettes Smoked Daily: 0 Hx Alcohol Use: No Drug/Substance Use Hx: No Substance Use Type: None Review of Systems - Review of Systems Constitutional: Yes: Chills, Fever, Malaise, Night Sweats HEENTM: Yes: Nose Congestion Respiratory: Yes: Cough *Physical Exam - Vital Signs Last Vital Signs Temp Pulse Resp BP Pulse Ox 99.3 F 98 H 18 144/81 97 12/18/19 19:40 12/18/19 19:40 12/18/19 19:40 12/18/19 19:40 12/18/19 19:40 - Physical Exam 12/18/19 20:02 GENERAL: The patient is awake, alert, and fully oriented, in no acute distress. HEAD: Normal with no signs of trauma. EYES: sclera anicteric, conjunctiva clear. ENT: Ears normal tympanic membranes normal oropharynx clear uvula midline NECK: Normal range of motion LUNGS: Breath sounds equal, clear to auscultation bilaterally. No wheezes, and no crackles. HEART: S1 and S2 without murmur, rub or gallop. ABDOMEN: Soft, nontender, normoactive bowel sounds. No guarding, no rebound. No masses. EXTREMITIES: Normal range of motion, no edema. No clubbing or cyanosis. No cords, erythema, or tenderness. NEUROLOGICAL: Cranial nerves II through XII grossly intact. PSYCH: Normal mood, normal affect. SKIN: Warm, Dry, normal turgor, no rashes or lesions noted. Medical Decision Making - Medical Decision Making 12/18/19 20:03 We will treat for flu based on sick contacts and symptoms as well as length of time I have reviewed the pathophysiology with the patient. They are in agreement with the treatment plan all questions were answered to their satisfaction. Understanding for follow-up without fail was also conveyed to the patient. Again they are in agreement. Discharge - Discharge Information Problems reviewed: Yes Clinical Impression/Diagnosis: Flu-like symptoms Condition: Poor - Admission No - Additional Discharge Information Prescriptions: Oseltamivir Phosphate [Tamiflu] 75 mg PO BID #10 capsule - Follow up/Referral Referrals: Lazaro Velasquez MD [Primary Care Provider] - - Patient Discharge Instructions Additional Instructions: Tylenol Motrin as directed for fever and body aches. Return to the emergency room for worsening symptoms and without fail follow-up with your primary care physician in 1 to 2 days for further evaluation and treatment options. Please take the Tamiflu as directed. - Post Discharge Activity
== END 2019-12-18 19:49 | disposition home or self-care (01) ==
LOC: JERFT 19:37
DX: J11.1 Influenza due to unidentified influenza virus with other respiratory manifestations (principal); I10 Essential (primary) hypertension; N20.0 Calculus of kidney; Z88.8 Allergy status to other drugs, medicaments and biological substances
CPT/HCPCS: 87804; 99282-25

== ENCOUNTER 2023-11-26 14:55 | Emergency (ER) | payer OTHER ==
[2023-11-26 15:37] VITALS: BP 161/82; PULSE 85; RESP 16; TEMP 98.1; BMI 25.7
[2023-11-26] MEDS ORDERED: KETOROLAC TROMETHAMINE 30 MG/1 ML VIAL ONE (17:53)
[2023-11-26] MEDS: KETOROLAC TROMETHAMINE 30 MG/1 ML VIAL IM ONE (18:16)
[2023-11-26 18:32] LABS: URINE APPEARANCE CLEAR; URINE BILIRUBIN NEGATIVE (NEGATIVE); URINE COLOR YELLOW; URINE GLUCOSE (UA) NEGATIVE (NEGATIVE); URINE KETONE NEGATIVE (NEGATIVE); URINE LEUK ESTERASE NEGATIVE (NEGATIVE); URINE NITRITE NEGATIVE (NEGATIVE); URINE PROTEIN NEGATIVE (NEGATIVE); URINE UROBILINOGEN 0.2 mg/dL (0.2-1.0)
== END 2023-11-26 19:27 | disposition home or self-care (01) ==
LOC: JER 14:55
PROC: 3E0233Z Introduction of Anti-inflammatory into Muscle, Percutaneous Approach (ICD-10-PCS; principal; 2023-11-26)
DX: M54.50 Low back pain, unspecified (principal)
CPT/HCPCS: 72100-TC-FY; 81003; 87086; 99284-25